=== PATIENT | female | born 2000 | race African-American/Black ===

== ENCOUNTER 2023-11-15 10:22 | Emergency (ER) | payer MEDICAID ==
[~2023-11-15] VITALS: Ht 162.6 cm; Wt 51.7 kg
[2023-11-15 10:33] VITALS: BP_SYST 123; PULSE 82; RESP 16; TEMP 98.7; O2SAT 98
[2023-11-15] MEDS: DIPHENOXYLATE HCL/ATROP SULF 2.5 MG TAB PO ONE (11:14)
[2023-11-15] MEDS: ONDANSETRON 4 MG ODT TAB PO ONE (11:15)
[2023-11-15 11:33] LABS: BILIRUBIN,URINE NEGATIVE (NEGATIVE); BLOOD, URINE 3+ (NEGATIVE); COLOR,URINE YELLOW (YELLOW); GLUCOSE,URINE NEGATIVE (NEGATIVE); KETONES,URINE NEGATIVE (NEGATIVE); LEUKOCYTE ESTERASE ,URINE TRACE (NEGATIVE); NITRITE, URINE NEGATIVE (NEGATIVE); PH,URINE 6.5 (5.0-8.0); PROTEIN URINE 1+ (NEGATIVE); UROBILINOGEN,URINE 0.2 (0.2-1.0)
[2023-11-15 11:35] LABS: CLARITY/URINE SLIGHTLY HAZY (CLEAR)
[2023-11-15 12:07] LABS: BACTERIA,URINE RARE /HPF (None Seen); MUCUS,URINE 2+ /LPF (None Seen); RBC,URINE 50-80 /HPF (0-3)
[2023-11-15] MEDS ORDERED: LOM2.5 PO (12:15)
[2023-11-15] MEDS ORDERED: ONDA-8 TL (12:15)
[2023-11-15 12:22] VITALS: BP_SYST 123; PULSE 82; RESP 16; TEMP 98.7; O2SAT 98
== END 2023-11-15 12:21 | disposition home or self-care (01) ==
LOC: SED 10:22
DX: K52.9 Noninfective gastroenteritis and colitis, unspecified (principal); R11.2 Nausea with vomiting, unspecified; Z79.899 Other long term (current) drug therapy
CPT/HCPCS: 99283; 81001; 81025; 81000; 81015; Q0162